=== PATIENT | female | born 1925 | race Caucasian/White ===

== ENCOUNTER → 2016-11-09 | Outpatient (REF) | payer MEDICARE ==
[~2016-11-09] MED LIST: /MOM400 PO; /WARF25TA PO; AROMASIN OR; ASPI32ECTA PO; ASPI81TA83 OR; BISA10SU PR; BISAC5TA PO; CALCCHW12 OR; CLOB5CR EXT; CO Q100C10 PO; COLA100C2 OR; CORE6.25 OR; FEMA2.5T4 PO; FURO20TA2 PO; LEVO25TA5 PO; MAGN250T5 PO; MELO7.5S PO; PERC10TA PO; PERC10TA9 PO; PRED5TAB; PRED5TAB OR; PROBCAP4 PO; RED600TA PO; TURM500C3 PO; TYLE325T5 PO; ULTRAVATE TOP; VITA100L PO; VITA2000 PO; VITA250L PO; [UNRECOGNIZED DRUG - OTHER]; [UNRECOGNIZED DRUG - OTHER] PO; [UNRECOGNIZED DRUG - OTHER] PO; [UNRECOGNIZED DRUG - OTHER] PO; iodoral PO; preser vision PO
== END ==
LOC: M SFHCPLAZ 15:33
PROVIDERS: ATTEND Dermatology
DX: C44.311 Basal cell carcinoma of skin of nose (principal)

== ENCOUNTER → 2017-03-17 | Outpatient (REF) | payer MEDICARE | LOC: M SFHCPLAZ 11:44 | PROVIDERS: ATTEND Dermatology | DX: C44.301 Unspecified malignant neoplasm of skin of nose (principal) ==